=== PATIENT | female | born 1950 | race Two or more races ===

== ENCOUNTER → 2018-07-31 15:36 | Outpatient (CLI) | payer MEDICARE, SELFPAY ==
--- NOTE | 2018-07-31 08:35 | TISS_PTH ---
PATIENT: USAMA COLON LOC: [facility] U#:[id number] AGE/SX: 74/F ROOM: RE07/31/[address]: Dr. Romie Bundy DDS : 1950 BED: DIS: SPEC #: [id number] RECD: 07/31/18 15:06 STATUS: DEEPTI ANNE #: [id number] BRODY: 07/31/18 08:[address]: Romie Bundy DEPT: SURGICAL PATHOLOGY RECD BY: Rayray Guerrier Tissues: Mouth, NOS Procedures: Surgery Specimen Level IV HEADER OPERATION: Buccal gingiva PRE-OP DIAGNOSIS: Buccal gingiva TISSUE SUBMITTED: Buccal gingiva MICROSCOPIC DIAGNOSIS Buccal mucosa, biopsy: Hyperkeratosis and chronic inflammation. No evidence of malignancy. AM:alexus 08/02/18 COMMENT Clinical correlation is suggested. MICROSCOPIC DESCRIPTION Slides are reviewed. GROSS DESCRIPTION Received in fixative is one container labeled with the patient's name and designated buccal tooth #3. The specimen consists of an irregular fragment of light blankenship soft tissue measuring 0.5 x 0.1 x 0.1 cm. The specimen is totally submitted in one cassette. / AM:alexus 08/01/18 TC:3 CPT: 96264
== END ==
PROVIDERS: Referring Provider Dentist Oral and Maxillofacial Surgery; Visit Provider Dentist Oral and Maxillofacial Surgery
DX: L57.0 Actinic keratosis (principal)
CPT/HCPCS: 88305